=== PATIENT | female | born 1985 | race Caucasian/White ===

== ENCOUNTER 2016-10-12 21:20 | Emergency (ER) | payer OTHER ==
[~2016-10-12] VITALS: Ht 172.7 cm; Wt 106.4 kg
[~2016-10-12 21:20] MED LIST: BONINE25 MG PO; BUTISOL SODIUM30 MG; FLEXERIL10 MG PO; FLEXERIL5 MG PO; FLONASE16 G1 BOTH NARES; FLUOXETINE HCL20 MG PO; IBUPROFEN600 MG PO; IBUPROFEN800 MG PO; IMITREX100 MG PO; MAXALT10 MG PO; MUCINEX600 MG PO; NAPROXEN500 MG PO; PRILOSEC40 MG PO; PROMETHAZINE HC25 M1; RELPAX20 MG PO; SKELAXIN800 MG PO; TOPIRAMATE50 MG PO; TORADOL10 MG PO; TRAMADOL HCL50 MG PO; ZOFRAN ODT4 MG PO; ZOFRAN4 MG PO
[2016-10-12 21:43] LABS: HEMATOCRIT 41.8 % (36.0-46.0); MCH 29.6 PG (29.0-34.0); MCHC 34.7 G/DL (30.0-36.0); MCV 85.3 FL (83-99); MEAN PLAT.VOLUME 10.1 uM^3 (9.5-12.4); PLATELET COUNT 351 K/uL (156-360); RBC DIS.WIDTH-CV 12.1 % (11.8-14.6); RBC DIS.WIDTH-SD 36.8 % (39-53); WHITE BLOOD COUNT 12.8 K/uL (4.1-10.2)
[2016-10-12 21:58] LABS: CHLORIDE 108 mEq/L (99-109); POTASSIUM 3.8 mEq/L (3.7-5.4); SODIUM 141 mEq/L (136-147)
[2016-10-12 22:00] LABS: GLUCOSE 95 mg/dL (70-99)
[2016-10-12 22:01] LABS: ANION GAP 10 MEQ/L (2-14)
[2016-10-12 22:04] LABS: GFR ESTIMATE (CALCULATED) > 59 mL/min/
[2016-10-12 22:05] LABS: TROP-I INTERPRETATION NEGATIVE; TROPONIN-I < 0.01 ng/mL (0.0-0.30); UREA NITROGEN (BUN) 14 mg/dL (9-23)
[2016-10-12 22:30] VITALS: BP 155/86
== END 2016-10-12 22:33 | disposition home or self-care (01) ==
LOC: EME 21:20
DX: R07.9 Chest pain, unspecified (principal); K21.9 Gastro-esophageal reflux disease without esophagitis
CPT/HCPCS: 71020; 80048; 84484; 85027; 93005; 99281; 99284

== ENCOUNTER 2017-01-05 15:51 | Emergency (ER) | payer OTHER ==
[~2017-01-05] VITALS: Ht 175.3 cm; Wt 101.3 kg
[2017-01-05 16:39] LABS: MCH 29.3 PG (29.0-34.0); MCHC 33.7 G/DL (30.0-36.0); PLATELET COUNT 332 K/uL (156-360); RBC DIS.WIDTH-SD 38.6 % (39-53); RED BLOOD COUNT 4.71 M/uL (3.80-5.20); WHITE BLOOD COUNT 9.8 K/uL (4.1-10.2)
[2017-01-05 16:49] LABS: CHLORIDE 108 mEq/L (99-109); SODIUM 140 mEq/L (136-147)
[2017-01-05 16:51] LABS: GLUCOSE 118 mg/dL (70-99)
[2017-01-05 16:53] LABS: ANION GAP 7 MEQ/L (2-14); TOTAL BILIRUBIN 0.3 mg/dL (0.0-1.0)
[2017-01-05 16:55] LABS: ALKALINE PHOSPHATASE 50 IU/L (3-129); GFR ESTIMATE (CALCULATED) > 59 mL/min/
[2017-01-05 16:56] LABS: UREA NITROGEN (BUN) 9 mg/dL (9-23)
[2017-01-05 16:59] LABS: LIPASE 29 U/L (1.0-51.0)
[2017-01-05 17:06] LABS: QUANTITATIVE HCG < 4.0 MIU/ML
[2017-01-05 17:20] LABS: ADD MIUA? NO; BILIRUBIN NEGATIVE; BLOOD NEGATIVE; COLOR YELLOW ((YELLOW)); GLUCOSE (STRIP) NEGATIVE; KETONES NEGATIVE; LEUKOCYTES NEGATIVE; NITRITE NEGATIVE; PROTEIN (STRIP) NEGATIVE; SPECIFIC GRAVITY 1.014 (1.000-1.030); UROBILINOGEN 0.2 MG/DL (0.2-1.0)
[2017-01-05 18:11] VITALS: BP 133/83
== END 2017-01-05 18:27 | disposition home or self-care (01) ==
LOC: EME 15:51
PROVIDERS: Nurse Practitioner Family
DX: K21.9 Gastro-esophageal reflux disease without esophagitis (principal); M54.9 Dorsalgia, unspecified
CPT/HCPCS: 74176; 80053; 81003; 83690; 84702; 85027; 99281; 99283

== ENCOUNTER 2017-06-05 06:34 | Emergency (ER) | payer OTHER ==
[~2017-06-05] VITALS: Ht 175.3 cm; Wt 105.2 kg
[2017-06-05 06:36] VITALS: BP 136/90
[2017-06-05] MEDS ORDERED: OMEPRAZOLE40 M1 PO (07:24)
== END 2017-06-05 08:42 | disposition home or self-care (01) ==
LOC: EME 06:34
DX: R68.84 Jaw pain (principal)
CPT/HCPCS: 70486; 99281; 99283

== ENCOUNTER 2017-07-23 23:02 | Emergency (ER) | payer OTHER ==
[~2017-07-23 23:02] MED LIST changes: +OMEPRAZOLE40 M1 PO
== END 2017-07-23 23:05 | disposition left against medical advice (07) ==
LOC: EME 23:02
DX: R68.84 Jaw pain (principal); Z53.21 Procedure and treatment not carried out due to patient leaving prior to being seen by health care provider

== ENCOUNTER 2017-11-23 01:08 | Emergency (ER) | payer OTHER ==
[~2017-11-23] VITALS: Ht 175.3 cm; Wt 110.2 kg
[2017-11-23 01:36] LABS: HEMATOCRIT 39.4 % (36.0-46.0); HEMOGLOBIN 13.8 G/DL (11.9-15.5); MCH 30.7 PG (29.0-34.0); MCV 87.6 FL (83-99); PLATELET COUNT 334 K/uL (156-360); RBC DIS.WIDTH-CV 12.1 % (11.8-14.6); WHITE BLOOD COUNT 10.9 K/uL (4.1-10.2)
[2017-11-23 01:47] LABS: CHLORIDE 107 mEq/L (99-109); POTASSIUM 3.9 mEq/L (3.7-5.4); SODIUM 139 mEq/L (136-147)
[2017-11-23 01:49] LABS: GLUCOSE 96 mg/dL (70-99)
[2017-11-23 01:53] LABS: CREATININE 0.7 mg/dL (0.6-1.3); GFR ESTIMATE (CALCULATED) > 59 mL/min/; UREA NITROGEN (BUN) 10 mg/dL (9-23)
[2017-11-23 01:57] LABS: TROP-I INTERPRETATION NEGATIVE; TROPONIN-I < 0.01 ng/mL (0.0-0.30)
[2017-11-23 02:08] VITALS: BP 130/89
== END 2017-11-23 02:09 | disposition home or self-care (01) ==
LOC: EME 01:08
DX: R07.89 Other chest pain (principal); R07.0 Pain in throat; K21.9 Gastro-esophageal reflux disease without esophagitis
CPT/HCPCS: 71046; 80048; 84484; 85027; 93005; 99281; 99284